=== PATIENT | female | born 1990 ===

== ENCOUNTER 2020-01-10 14:20 | Emergency (ER) | payer SELFPAY ==
[~2020-01-10] VITALS: Ht 154.9 cm; Wt 69.4 kg
[2020-01-10 15:24] LABS: BILIRUBIN NEGATIVE; CLARITY CLEAR (CLEAR); COLOR YELLOW (YELLOW); GLUCOSE NEGATIVE; KETONE NEGATIVE
[2020-01-10 15:25] LABS: BLOOD NEGATIVE (NEGATIVE); LEUKO ESTERASE 2+ (NEGATIVE); NITRITE NEGATIVE (NEGATIVE); PH 7.5 (4.5-8.0); SPECIFIC GRAVITY 1.015 (1.001-1.030)
[2020-01-10 15:33] LABS: BACTERIA 2+; RBC 0-2 rbc/hpf (0-2)
[2020-01-10] MEDS ORDERED: CEPHALEXIN500 M1 PO (16:13)
== END 2020-01-10 16:18 | disposition home or self-care (01) ==
LOC: ED 14:20
PROVIDERS: Nurse Practitioner Family
DX: O23.43 Unspecified infection of urinary tract in pregnancy, third trimester (principal); Z3A.28 28 weeks gestation of pregnancy